=== PATIENT | female | born 1965 | race Caucasian/White ===

== ENCOUNTER 2017-12-16 01:06 | Emergency (ER) | payer OTHER ==
[~2017-12-16] VITALS: Ht 177.8 cm; Wt 63.5 kg
[~2017-12-16 01:06] MED LIST: ASPI81CH PO
== END 2017-12-16 04:47 | disposition home or self-care (01) ==
LOC: ER 01:06
DX: S39.012A Strain of muscle, fascia and tendon of lower back, initial encounter (principal); F17.210 Nicotine dependence, cigarettes, uncomplicated; Z79.82 Long term (current) use of aspirin; X50.3XXA Overexertion from repetitive movements, initial encounter
CPT/HCPCS: 72100; 99283-25

== ENCOUNTER 2018-12-03 00:29 | Emergency (ER) | payer MEDICAID ==
[~2018-12-03] VITALS: Ht 177.8 cm; Wt 63.5 kg
[2018-12-03] MEDS ORDERED: Cleocin HCl300 MG PO ×2 (02:13→02:14)
== END 2018-12-03 02:32 | disposition home or self-care (01) ==
LOC: ER 00:29
DX: K04.7 Periapical abscess without sinus (principal); F17.210 Nicotine dependence, cigarettes, uncomplicated; Z88.8 Allergy status to other drugs, medicaments and biological substances; Z79.82 Long term (current) use of aspirin
CPT/HCPCS: 10160; 99282-25